=== PATIENT | female | born 1970 | race American Indian/Alaskan Native ===

== ENCOUNTER 2018-01-06 05:03 | Emergency (ER) | payer BC ==
[2018-01-06 09:05] VITALS: BP 137/65
--- NOTE | 2018-01-06 09:21 | Emergency Department Report ---
HPI - General Chief Complaint: Allergic Reaction Time Seen by Provider: 01/06/18 09:14 - HPI HPI: Patient is a 47-year-old black female who is presenting with facial swelling and itching for the past 24 hours. Patient states that she's eaten a breakfast bar that was new to her as well as also has dyed her hair in the last week. These are the only 2 things she may be allergic to that she knows of. Patient is denying any shortness of breath chest pain at this time. Patient states that she has some mild facial swelling and itchiness around the hairline. The symptoms will down to the neck and then stop. ED Past Medical Hx - Past Medical History Previous Medical History?: Yes Hx Headaches / Migraines: Yes - Surgical History Past Surgical History?: No - Social History Smoking Status: Never Smoker - Medications Home Medications: Home Medications Medication Instructions Recorded Confirmed Last Taken Type Prednisone [predniSONE 10 mg 10 mg PO .TAPER #1 tab.ds.pk 01/06/18 Unknown Rx (6-Day Pack, 21 Tabs)] diphenhydrAMINE [Benadryl CAP] 25 mg PO Q6HR #20 capsule 01/06/18 Unknown Rx ED Review of Systems ROS: Stated complaint: POSSIBLE ALLERGIC REACTION Other details as noted in HPI Comment: All other systems reviewed and negative Physical Exam - Physical Exam Vital Signs: Vital Signs 01/06/18 01/06/18 01/06/18 05:05 05:20 06:06 Temperature 98.8 F 98.8 F Pulse Rate 88 80 Respiratory 1 L 20 Rate Blood Pressure 178/100 178/100 Blood Pressure [Left] O2 Sat by Pulse 99 99 100 Oximetry 01/06/18 01/06/18 01/06/18 06:21 06:30 07:00 Temperature 98.3 F Pulse Rate 68 Respiratory 22 Rate Blood Pressure 159/83 Blood Pressure 179/89 180/97 [Left] O2 Sat by Pulse 100 98 Oximetry 01/06/18 01/06/18 01/06/18 07:30 08:00 08:30 Temperature Pulse Rate Respiratory Rate Blood Pressure 159/89 157/90 137/65 Blood Pressure [Left] O2 Sat by Pulse 99 100 98 Oximetry General: General exam patient is alert and oriented 3. Chest heart tones are within normal limits Lungs are clear to auscultation Abdomen soft nonte Ski exam patient shows some mild edema to the face with some dry skin at the chin and neck. There is no erythema or warmth associated with the swelling. There is no indurated skin. ED Course Vital Signs 01/06/18 01/06/18 01/06/18 05:05 05:20 06:06 Temperature 98.8 F 98.8 F Pulse Rate 88 80 Respiratory 1 L 20 Rate Blood Pressure 178/100 178/100 Blood Pressure [Left] O2 Sat by Pulse 99 99 100 Oximetry 01/06/18 01/06/18 01/06/18 06:21 06:30 07:00 Temperature 98.3 F Pulse Rate 68 Respiratory 22 Rate Blood Pressure 159/83 Blood Pressure 179/89 180/97 [Left] O2 Sat by Pulse 100 98 Oximetry 01/06/18 01/06/18 01/06/18 07:30 08:00 08:30 Temperature Pulse Rate Respiratory Rate Blood Pressure 159/89 157/90 137/65 Blood Pressure [Left] O2 Sat by Pulse 99 100 98 Oximetry ED Medical Decision Making - Medical Decision Making Patient is a 47-year-old female who is presenting with most likely allergic reaction. Patient is to potential allergens dishes, contact with. Because of the distribution of the symptoms the hair dye is most likely causative agent. Patient has been taking Benadryl orally and will continue this and she was given a dose of Solu-Medrol here in emergency department. Steroids will be continued at home. Patient is stable for discharge. Critical care attestation.: If time is entered above; I have spent that time in minutes in the direct care of this critically ill patient, excluding procedure time. ED Disposition Clinical Impression: Allergic reaction Qualifiers: Encounter type: initial encounter Qualified Code(s): T78.40XA - Allergy, unspecified, initial encounter Disposition: -01 TO HOME OR SELFCARE Is pt being admited?: No Does the pt Need Aspirin: No Condition: Stable Instructions: Allergies (ED) Prescriptions: diphenhydrAMINE [Benadryl CAP] 25 mg PO Q6HR #20 capsule Prednisone [predniSONE 10 mg (6-Day Pack, 21 Tabs)] 10 mg PO .TAPER #1 tab.ds.pk Referrals: PRIMARY CARE, [Primary Care Provider] - 3-5 Days
== END 2018-01-06 09:55 | disposition home or self-care (01) ==
LOC: ED 05:03
DX: T78.40XA Allergy, unspecified, initial encounter (principal); G43.909 Migraine, unspecified, not intractable, without status migrainosus
CPT/HCPCS: 96374; 99282; J2930